=== PATIENT | male | born 1970 | race Caucasian/White ===

== ENCOUNTER 2020-01-31 08:31 | Emergency (ER) | payer BC, SELFPAY ==
[2020-01-31] VITALS (36 sets, daily range): BP systolic 141–197; BP diastolic 86–116; PULSE 50–77; RESP 12–26; TEMP 36.4–36.6; O2SAT 98–100
--- NOTE | 2020-01-31 08:30 | RT.EKG_ITS ---
APPROVED REPORT Exam: Resting ECG Patient Location: E HR:66 bpm ECG Measurements Heart Rate 66 AXIS TX 178 P 6 QRSd 80 QRS 19 QT 402 T 2 QTc 420 Conclusion Sinus rhythm...normal P axis, V-rate 60- 99 Q lead III nondiagnostic
--- NOTE | 2020-01-31 08:36 | W.ED.GENAD ---
Discharge Plan Disposition Patient Disposition: HOME Condition: Stable Discharge Details Chief Complaint: Chest Pain Clinical Impression: Dizziness, Chest pain Primary Care Provider: Unknown,Unknown ED Provider: Radha Salter Home Meds and New Rx's Prescriptions: Continued lisinopril 30 mg Tablet 30 mg PO DAILY RF: 0 Discharge Instructions Instructions: Chest Pain (ED), Dizziness (ED) Additional Instructions: Imaging is reassuring today of your head. I would recommend outpatient stress testing of your heart. I have made an appointment with your primary care with your primary care at 10:45 Monday morning. If you develop fever/chills, recurrent lightheadedness/dizziness, chest pain, shortness of breath or other new/worsening symptoms I would like you to follow-up urgently once again Discharge Data Discharge Date/Time-TO BE ENTERED AT DEPARTURE: 01/31/20 15:09 Medical Decision Making <BRIDGETT Huynh - Last Filed: 02/01/20 06:54> Patient is a pleasant 49-year-old male who reported no past medical history, presenting today with chief complaint of left-sided chest/shoulder pain, dizziness and generalized weakness. States that yesterday he was having this left-sided chest/shoulder pain. He attributed this to raking for extended period of time Monday. He has been using topical options for his CP/shoulder pain. Patient works delivering products via truck. States his day started at 1 AM. It was at 3 AM, while driving, he began having lightheadedness. He endorses both feeling of the room spinning as well as lightheadedness. States that he was listing to the right with the room spinning to the left. States that when this first began he was having headache which is since resolved. His chest pain is also since resolved. He is feeling generally weak. Has not had a change in his speech, strength. States that he did sleep for a brief period of time did not note any improvement in the symptoms. He is never had symptoms like this historically. No recent travel. No fevers or chills. He denies any neck pain. Also noted rash to left side of his chest approximately 1 week ago which she described as a burning rash. States that this has been improved. On exam, patient appears uncomfortable, he is closing his eyes and holding very still. Neuro exam is intact. Normal cardiac and respiratory exam. Differential at this time is quite broad. I did consider ACS as the etiology of his lightheadedness, dizziness chest pain. However, this did not always seem to be correlated. Since the patient has a multitude of various complaints that have been in different stages of time. Internally, this could be associated with PE, vertigo, posterior stroke versus other. EKG was reviewed by Dr. Burden. He advises no acute ischemic pathology noted. Patient is in normal sinus rhythm with a rate of 66. Labs reviewed, no acute abnormality noted. Troponin is less than 0.05. No electrolyte abnormalities. D-dimer is less than 500. CBC within normal limits. Contacted by radiologist, no acute abnormality noted on head CT, no acute bleed or ischemic process. Patient reports feeling much improved. He continues to have a normal neurologic exam. However, he does report that he continues to be fatigued. He does not have any chest pain at this point. I am concerned with the event that he had this morning that he should be admitted for continued cardiac monitoring as well as MRI of his head. Spoke with hospitalist regarding admission for vertigo, KEENAN, JULIUS. She evaluated the patient, is concernned for labyrinthitis. She advised consultation with PT. she would like physical therapy consult as well as brain MRI prior to admission. PT evaluated the patient and was unable to elicit evidence of vertigo, patient did well with all testing. Repeat troponin and ECG without abnormality. MRI reviewed by radiologist. He advised microvascular change in white matter but that this is typical and appropriate for age. No acute process noted. Spoke again with hospitalist. At this time, as the patient now has 2- troponins, MRI without acute abnormality, she feels that discharge is most appropriate option for this patient. She reports that she did speak with the patient regarding admission and he had preferred discharge. She also adds the patient's history that he had had some congestion and right ear discomfort. While there is no evidence to suggest otitis media, she is primarily concerned for labyrinthitis leading to vertigo which is currently resolved. She does however, recommend outpatient stress testing. Hospitalist feels that the patient's left-sided shoulder/chest pain associated with recurrent musculoskeletal discomfort. Is reported to have had old injury that flares in the left shoulder. Discussed these concerns with the patient. We discussed inpatient versus outpatient admission. Patient continues to be completely asymptomatic. He does seem like a very reliable gentleman. He was advised not to drive at this time. Encourage water intake. Offered strict return precautions. I will reach out to patient's primary care to arrange for prompt follow-up. Patient would like to have stress testing at outside facility which she will discuss further with his primary care. Spoke with patients primary care office, [facility], was able to make appointment with PCP for Monday at 10:45. Patient's came to pick him up. All his questions and concerns were addressed and he is in agreement this plan. <Wayne Burden MD - Last Filed: 02/01/20 08:37> 9:10 -- Patient seen, examined, and discussed with BRIDGETT Salter. Screening ECG was reviewed and interpreted by me: Please see report, Q waves noted lead III, subtle less than [address] elevation in lead V4 and V5, artifact V6. Will repeat ECG. Patient has no recurrent chest pain but has had recent discomfort in his left chest and left shoulder that he attributes to raking. Patient notes that a few days ago he had a floater in his left eye that lasted about an hour. This is atypical and is never had similar before. Episode was painless. This morning he was driving his truck and developed some dizziness and felt like he was falling to the right. This occurred around 4 AM and lasted for some time. He had associated severe nausea with the episode. No headache. Notes symptoms resolved 1 to 2 hours ago. He notes he also had some left chest discomfort that lasted from approximately 7:53 AM. He continues to note some left posterior neck left occipital head discomfort. Consider ACS. Will check troponin. Concern for potential CVA posterior circulation. Will obtain CT CTA of the head and neck. Patient examined and is hypertensive. He took his antihypertensive last night as prescribed. Patient is saturating well in no respiratory distress. Heart sounds normal. Neurologically intact. -- I agree with treatment plan as discussed/documented by BRIDGETT Salter. Initial plan for admission. Patient evaluated by hospitalist for admission and deemed stable for discharge. BRIDGETT Salter did contact PCP to arrrange timely outpatient follow-up and patient was encouraged to return to the ED for any worsening or new concerning symptoms. HPI <BRIDGETT Huynh - Last Filed: 02/01/20 06:54> General Mode of arrival: ambulatory. Date/Time Provider Initiated Documentation: 01/31/20 08:36. Limitations to Documentation: no limitations. Information obtained by: patient and RN notes reviewed. History of Present Illness 49 year old M presents to the emergency department with the chief complaint of dizziness, left shoulder/upper chest pain, described as moderate, with intensity rated at 1 (patient denies any pain at this time). Quality is described as aching, and is localized to the chest. Patient extremity (left shoulder). Patient started experiencing this day(s) (1) and it has been constant. No relieving factors improve symptom(s), No exacerbating factors reported . Patient notes no other symptoms.. Patient did receive the following treatments prior to arrival, none Related Data Home Medications Medication Instructions Recorded Confirmed lisinopril 30 mg PO DAILY 01/31/20 01/31/20 Allergies Allergy/AdvReac Type Severity Reaction Status Date / Time acetaminophen [From Percocet] AdvReac Intermediate Other (See Unverified 01/31/20 08:48 Comment) oxycodone [From Percocet] AdvReac Intermediate Other (See Unverified 01/31/20 08:48 Comment) Review of Systems <BRIDGETT Huynh - Last Filed: 02/01/20 06:54> Constitutional Constitutional: Reports as per HPI, Denies chills, Reports fatigue, Denies fever(s), Reports headache(s), Denies lethargy, Denies poor appetite and Denies weakness Eyes Eyes: Denies change in vision ENT Ears, Nose, Mouth, and Throat: Reports vertigo, Reports dizziness, Reports headache(s) and Reports disequilibrium Cardiovascular Cardiovascular: Reports as per HPI, Reports chest pain, Reports chest pain at rest, Denies syncope, Denies edema, Denies leg edema, Denies lightheadedness, Reports radiating jaw, neck or arm pain (Right shoulder), Denies palpitations, Denies dyspnea and Denies dyspnea on exertion Respiratory Respiratory: Reports as per HPI, Denies chest congestion, Denies cough, Denies pain on inspiration, Denies pain with cough, Denies dyspnea, Denies dyspnea on exertion and Denies wheezing Gastrointestinal Gastrointestinal: Reports as per HPI, Denies abdominal pain, Denies diarrhea, Reports nausea and Denies vomiting Genitourinary Genitourinary: Denies system reviewed and no additional complaints, except as documented (denies change in urinary habits) Musculoskeletal Musculoskeletal: Reports as per HPI and Denies back pain Integumentary/Breasts Skin/Breast: Reports as per HPI and Denies rash Neurologic Neurologic: Reports as per HPI, Reports abnormal movements (Reports that he was listing to the right), Denies confusion, Reports vertigo, Reports dizziness, Denies syncope, Reports headache(s), Denies localized weakness, Denies radicular pain, Denies sensory deficit, Denies paresthesias, Reports disequilibrium and Denies weakness Psychiatric Psychiatric: Denies confusion Endocrine Endocrine: Reports fatigue and Denies palpitations Allergic/Immunologic Allergic/Immunologic: Denies wheezing PFSH <BRIDGETT Huynh - Last Filed: 02/01/20 06:54> Medical History Hypertension (Chronic) Nephrolithiasis (Chronic) Surgical History H/O arthroscopy of left knee (Acute) H/O cystoscopy (Acute) with ureteral stent; not removed H/O decompression of ulnar nerve (Acute) H/O lithotripsy (Acute) Family History (Updated 01/31/20 @ 15:19 by Rsoy Hunt MD) Maternal Grandmother Heart disease [place] in her 60s Stroke Paternal Grandmother Stroke Paternal Aunt Diabetes Mother Hypertension Cancer breast cancer Father Hypertension Sister Hypertension Cancer lymphoma Social History Smoking/Tobacco Use Status: Former Tobacco Use Alcohol Intake: current Alcohol Intake frequency: a few times a week Drug use: Never Substance use type: does not use Do you feel safe at home: Yes Do you feel safe in your relationship?: Yes Exam <BRIDGETT Huynh - Last Filed: 02/01/20 06:54> Const General: cooperative, comfortable, no acute distress, well developed and ill appearing acutely Nutritional Appearance: well nourished and overweight Orientation: alert, awake and oriented x3 HENMT Head: normal to inspection Ears: hearing grossly normal bilaterally Mouth: moist mucous membranes Chest Chest: normal inspection of the chest, normal palpation of entire chest wall and no crepitus Resp Effort & Inspection: normal respiratory effort, able to speak in complete sentences and no respiratory distress Auscultation: clear to auscultation bilaterally, no rales, no rhonchi and no wheezes Cardio Rate: regular rate Rhythm: regular rhythm Heart Sounds: S1 normal and S2 normal GI Inspection: normal to inspection, no edema and non-distended Palpation: soft, no hepatosplenomegaly, not firm, no guarding, not rigid and nontender Auscultation: normal bowel sounds Back/Spine/Pelvis Back: no CVA tenderness Thoracic/Lumbar Spine: thoracic and lumbar spine normal to inspection Skin General skin exam: no rashes or lesions noted Trauma: no lacerations or abrasions Neuro General: patient alert, patient awake and patient oriented x3 Cognition: normal cognition Speech: speech normal Gait: normal gait Motor: muscle tone normal throughout, strength 5/5 throughout, no pronator drift, no movement abnormalities noted and no fasciculations Sensory Exam: no sensory deficits noted DTR's: Rt Biceps: 2+, Lt Biceps: 2+, Rt Brachioradialis: 2+, Lt Brachioradialis: 2+, Rt Patellar: 2+ and Lt Patellar: 2+ Plantar Reflexes: Equivocal: bilateral Coordination: [id number] test normal, [id number] test normal, Romberg test normal, tandem gait normal and Does not sway with eyes open Pupils: Normal pupillary reactivity/response: bilateral Extrem General: normal to inspection, capillary refill normal, no pedal edema, no calf tenderness and normal gait Psych Appearance: grossly normal and well kempt Mental Status: mental status grossly normal Speech and Movement: speech and movement normal
--- NOTE | 2020-01-31 08:45 | RT.EKG_ITS ---
APPROVED REPORT Exam: Resting ECG Patient Location: E HR:65 bpm ECG Measurements Heart Rate 65 AXIS FL 200 P 16 QRSd 82 QRS 19 QT 403 T 7 QTc 420 Conclusion Sinus rhythm...normal P axis, V-rate 60- 99 Qlead III <1mm STelev V4-6
[2020-01-31] MEDS: Aspirin 81 MG CHEW 324 MG CH (08:53)
[2020-01-31 08:54] LABS: Abs Immature Grans 0.02 10^3/uL (0.0-0.06); Absolute Basophil Count 0.02 10^3/uL (0.0-0.2); Absolute Eosinophil Count 0.02 10^3/uL (0.0-0.7); Absolute Lymphocyte Count 1.21 10^3/uL (1.2-3.4); Absolute Monocyte Count 0.32 10^3/uL (0.1-0.8); Absolute Neutrophil Count 6.26 10^3/uL (1.2-6.7); Basophils % 0.3; Eosinophils % 0.3; HCT 46.8 % (40.0-50.0); HGB 16.2 g/dL (13.5-17.5); Immature Grans % 0.3; Lymphocytes % 15.4; MCH 30.9 pg (27.0-33.0); MCHC 34.6 % (32.0-36.0); MCV 89.3 fL (80-95); MPV 9.7 fL (8.0-11.0); Monocytes % 4.1; Neutrophils % 79.6; Nucleated RBC 0 %; Platelet Count 259 10^3/uL (130-400); RBC 5.24 10^6/uL (4.36-5.78); RDW 11.9 % (11.8-14.1); RDW-SD 38.5 fL; WBC 7.85 10^3/uL (4.4-10.8)
--- NOTE | 2020-01-31 09:01 | DI.CT_ITS ---
EXAM: CT BRAIN NECK CTA CLINICAL HISTORY: left posterior full. TECHNIQUE: Imaging Protocol: Axial CT angiography was performed with multi-slice acquisition and mu lti-planar and/or 3D reconstructions. CONTRAST MATERIAL: Intravenous: Omnipaque 350 Contrast volume:structured data in ml COMPARISON: CR XR CHEST 2V PA LATERAL from 01/31/2020 FINDINGS: CT angiography of the cervical cranial region was performed according to the usual protocol. Noncontrast CT obtained initially is within normal limits. There is a right-sided aortic arch. The origins of the major branches of the thoracic aorta appear n ormal. Visualized pulmonary arterial circulation is unremarkable. No mediastinal mass or adenopathy . Lung apices are clear. There is no evidence of a cervical mass or adenopathy. The tracheal laryngeal structures appear intac t. The common, internal, and external carotid arteries are within normal limits in the cervical region w ith no evidence of aneurysm, stenosis, or dissection. The vertebral arteries are unremarkable in appearance in the cervical region with no evidence of aneu rysm, stenosis, or dissection. Intracranial portions of the internal carotid arteries appear normal with no evidence of aneurysm, st enosis, or dissection. Intracranial vertebral arteries and basilar artery appear normal with no evidence of aneurysm, stenos is or dissection. No aneurysm identified in the region of the [id number]. The anterior, middle, and posterior cer ebral arteries and major branches appear intact with no evidence of aneurysm, stenosis, or dissection . No enhancing brain lesion identified. IMPRESSION: Negative CT angiography of the cervical cranial region. Incidental right-sided aortic arch. RADIATION DOSE DELIVERED: 1,372.86mGy.cmTotal DLP 1,372.86mGy.cm Total DLP DATA REPOSITORY: All CT scans at this facility are submitted to the National Radiology Data Registry (NRDR) Dose Index Registry (DIR) with the [employer] (ACR). RADIATION OPTIMIZATION: All CT scans at this facility use at least one of these dose optimization te chniques: automated exposure control; mA and/or kV adjustment per patient size (includes targeted exa ms where dose is matched to clinical indication); or iterative reconstruction.
[2020-01-31 09:22] LABS: ALT 53 U/L (16-63); AST 27 U/L (15-37); Albumin 4.6 g/dL (3.4-5.0); Alkaline Phosphatase 83 U/L (46-116); Anion Gap 9.9 mmol/L (3-11); BUN 16 mg/dL (7-18); Bilirubin, Total 0.7 mg/dL (0.2-1.0); CO2 26.1 mmol/L (21.0-32.0); CREATININE 1.13 mg/dL (0.70-1.30); Calcium 9.4 mg/dL (8.5-10.1); Chloride 102 mmol/L (98-107); Glucose 130 mg/dL (74-106); Magnesium 2.1 mg/dL (1.8-2.4); Potassium 4.2 mmol/L (3.5-5.1); Sodium 138 mmol/L (136-145)
[2020-01-31 09:23] LABS: Troponin I < 0.05 ng/mL (<0.06)
[2020-01-31 09:30] LABS: D-Dimer 199 ng/mlFEU (<500)
--- NOTE | 2020-01-31 10:06 | DI.RAD_ITS ---
EXAM: XR CHEST 2V PA LATERAL CLINICAL HISTORY: CP, dizzy TECHNIQUE: COMPARISON: No exams were available for comparison FINDINGS: The heart is not enlarged. Note is made of a right-sided aortic arch as seen on today's CT angiogram . The lungs are clear. No pleural effusion seen. IMPRESSION: No evidence of acute process. RADIATION DOSE DELIVERED: Total DLP
[2020-01-31] MEDS: Omnipaque 350 MG/ML 100 ML BTL IJ (10:12)
[2020-01-31] MEDS: Normal Saline - Diluent 50 ML VIAL IV (10:13)
--- NOTE | 2020-01-31 11:45 | RT.EKG_ITS ---
APPROVED REPORT Exam: Resting ECG Patient Location: E HR:58 bpm ECG Measurements Heart Rate [address] 207 P 41 QRSd 83 QRS 31 QT 416 T 15 QTc 408 Conclusion Sinus bradycardia...rate< [address]...CT >202, V-rate 50- 90
[2020-01-31 12:12] LABS: Troponin I < 0.05 ng/mL (<0.06)
--- NOTE | 2020-01-31 13:20 | DI.MRI_ITS ---
EXAM: MR BRAIN WO CLINICAL HISTORY: concern for posterior infarct,DIZZINESS, WEAKNESS TECHNIQUE: Multiplanar multisequence MRI of the brain was performed. COMPARISON: No exams were available for comparison FINDINGS: The ventricular system is normal in appearances. There are a few focal areas of abnormal signal in periventricular white matter consistent with mild m icrovascular ischemic changes not unusual in this age group. No other significant signal abnormality identified in the brain.. The orbital and temporal bone structures appear intact as does the pituitary. Diffusion weighted imaging shows No evidence of infarction. Susceptibility weighted imaging shows no evidence of intracranial hemorrhage. There is normal flow void in the [place] vasculature. IMPRESSION: Question minimal microvascular ischemic changes. Otherwise unremarkable examination. DATA REPOSITORY:
--- NOTE | 2020-01-31 14:01 | PT.INIE ---
Date of service: 01/31/20 Time of Service: 13:20 PT Notes Inpatient Physical Therapy Evaluation Date: 01/30/29 Referring Doctor: Rosy Hunt MD PT Orders: PT CONSULT: Safety consult Precautions: Standard Patient Profile/Admitting Diagnosis: Patient is a non Covid PUI who has been admitted to the ED with symptoms of dizziness and chest pain. He states that he began feeling ill early this morning. There were episodes in which he felt like the room was spinning, particularly when closing his eyes and he felt like he was leaning to the right. There were times that he felt like he was getting light headed. He states the he was having some difficulty with driving. He decided to come to the emergency room. He can not recall any trauma recently, no recent illness, and does not believe that he ate any questionable or food. PMHX: HTN Social History/Home Situation: Lives in [place], is a trunk driver/sales workers for [employer] Owned/DME: nothing Subjective: Feeling better then I did this morning Objective: Patient lying supine in bed with HOB to about 30 degrees Mental Status: Well oriented and alert to person, place, and time Headache currently: mild Nausea: mild to moderate Fogginess: none ROM: Right Upper Extremity: WNL Left Upper Extremity: WNL Right Lower Extremity: WNL Left Lower Extremity: WNL Strength: Right Upper Extremity: Globally 5/5 Left Upper Extremity: Globally 5/5 Right Lower Extremity: Globally 5/5 Left Lower Extremity: Globally 5/5 Bed Mobility/Transfers: Independent Supine-sit: Independent Sit-stand: Independent Stand-sit: Independent Gait: No evidence of severe antalgia or ataxia Balance: Static Sitting: Normal Dynamic Sitting: Normal Static Standing: Normal Dynamic Standing: Good Special Tests: Negative Romberg Negative Supine roll test Negative jennifer cohen pike test Smooth pursuits and saccades are WNL Negative dysmetria upon upper extremity coordination Informed Consent/Education: Patient instructed in purpose of PT consult and plan of care. ASSESSMENT: Patient is a 49 year old male with a history of fair physical health Admitted with Dizziness, cheset pain Patient presents with the following impairment level findings: Negative jennifer cohen pike, negative supine roll test, negative Romberg, mild symptoms with repetitive end range movement of the cervical spine, particular sagittal plane Pt will benefit from skilled therapy intervention in order to remedy their functional limitations and restore patient to a more appropriate and stable functional level. Impairments are contributing to the following functional limitations: Difficulty walking Patient is assessed as a Low complexity Initial evaluation based on the following: History: see above Examination: see above Presentation: stable Decision Making:Low based on the absence of any significant clinical physical finding upon this evaluation Goals: NO goals as this was a one time consult for safety Plan of Care/Treatment Plan: Patient will continue to monitor his symptoms. He should seek further medical assistance if there is a return, and follow up with his PCP concerning this ED visit. DISCHARGE RECOMMENDATIONS: Can safely return to home once his medical status has been reviewed. TREATMENT CODE/TIME: 70687 Low complexity Initial evaluation [facility]
--- NOTE | 2020-01-31 14:08 | NUR.NOTE ---
Nursing Note: PT sitting upright eating a sandwich and drinking zuleyka osiel. Vitals stable, PT currently pain free.
--- NOTE | 2020-01-31 14:39 | W.MEDCONSULT ---
Date of service: 01/31/20 Time of Service: 12:15 Assessment and Plan Assessment and plan (1) Vertigo: Status: Resolved Assessment and plan: Given the sinus symptoms, I think labirintitis is a possibility. MRI is negative. Recommend OTC antihistamines for sinus issues and, if vertigo recurs, trial of meclizine. I do not think that the patient warrants further inpatient workup/observation at this time and can be discharged home today. (2) Chest pain: Status: Resolved Assessment and plan: Likely musculoskeletal. However, do recommend outpatient stress test within the next 2 weeks. The patient has ruled out for ACS as this time. (3) Allergic rhinitis: Status: Acute Assessment and plan: Recommend OTC remedies, such as cetirizine or loratadine. 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 He described dizziness as the room spinning around him, his eyes not being able to focus. Concurrently he felt nauseated. When he got out of the truck, he was leaning to the right and felt his balance was off. He also reported feeling anxious and jittery. While he endorses having L shoulder and upper L-sided chest pain, he states that the shoulder pain is not new, that it started days ago after raking and that putting icy hot on it has helped. The anterior chest wall pain to him felt like a tightened muscle (in conversation with me, he clearly stated he connected it to the shoulder pain due to prior shoulder injury 2 years ago). The symptoms lasted for 4 hours and have resolved. For the past several days, he has had right ear pain and nasal congestion. He has been wearing a mask and initially thought that the ear hurt because of the ear loop irritation from the mask. He states he has been sneezing. He denies fevers, cough, shortness of breath, changes in taste/smell, shortness of breath, traveling outside [place], or being in contact with anyone positive for COVID-19. He had a negative workup in the ED including 2 sets of troponins, a negative MRI. He was evaluated by PT who was not able to illicit vertiginous symptoms during their evaluation. Internal medicine was consulted to help figure out further course of treatment for the patient, who by the time of evaluation was already doing much better. Review of Systems All systems reviewed & are unremarkable except as noted in HPI and below PFSH Medical History (Updated 01/31/20 @ 15:29 by Rosy Hunt MD) Hypertension (Chronic) Nephrolithiasis (Chronic) Surgical History (Updated 01/31/20 @ 15:16 by Rosy Hunt MD) H/O arthroscopy of left knee (Acute) H/O cystoscopy (Acute) with ureteral stent; not removed H/O decompression of ulnar nerve (Acute) H/O lithotripsy (Acute) Family History (Updated 01/31/20 @ 15:19 by Rosy Hunt MD) Maternal Grandmother Heart disease [place] in her 60s Stroke Paternal Grandmother Stroke Paternal Aunt Diabetes Mother Hypertension Cancer breast cancer Father Hypertension Sister Hypertension Cancer lymphoma Social History Smoking/Tobacco Use Status: Former Tobacco Use Alcohol Intake: current Alcohol Intake frequency: a few times a week Drug use: Never Substance use type: does not use Do you feel safe at home: Yes Do you feel safe in your relationship?: Yes Exam Narrative Exam Narrative: General: pleasant, mildly anxious obese male, does not look toxic, A&Ox3, appears comfortable Neurological: A&Ox3, no focal deficits, EOMI without nystagmus Psychiatric: Mildly anxious Skin: Several small mildly erythematous lesions on the Left anterior thorax, c/w healing shingles, no crusted/frankly vesicular lesions seen HEENT: Atraumatic, normocephalic, EOMI, dry MM, clear oropharynx, no submandibular or cervical lymphadenopathy, no goiter or JVD. Bilateral ear canals with small amount of cerumen; tympanic membranes not erythematous, not bulging Cardiovascular: RRR, no m/r/g Lungs: CTAB Gastrointestinal: soft, nontender, nondistended Genitourinary: deferred Extremities: no edema BLEs Results Last Vital Signs Temp 36.4 C L 01/31/20 12:28 Pulse 59 L 01/31/20 14:01 Resp 17 01/31/20 14:01 BP 161/106 H 01/31/20 14:01 Pulse Ox 99 01/31/20 12:31 Labs Result diagrams: 01/31/20 08:46 01/31/20 08:46 Labs: Laboratory Results - last 24 hr 01/31/20 01/31/20 01/31/20 08:46 08:46 08:46 WBC 7.85 RBC 5.24 Hgb 16.2 Hct 46.8 MCV 89.3 MCH 30.9 MCHC 34.6 RDW 11.9 Plt Count 259 MPV 9.7 Immature Gran % 0.3 Neutrophils % 79.6 Lymphocytes % 15.4 Monocytes % 4.1 Eosinophils % 0.3 Basophils % 0.3 Nucleated RBC % 0 Absolute Neutrophils 6.26 Absolute Lymphocytes 1.21 Absolute Monocytes 0.32 Absolute Eosinophils 0.02 Absolute Basophils 0.02 D-Dimer 199 Sodium 138 Potassium 4.2 Chloride 102 Carbon Dioxide 26.1 Anion Gap 9.9 BUN 16 Creatinine 1.13 Estimated GFR/1.73 m2 >= 60.00 Glucose 130 H Calcium 9.4 Magnesium 2.1 Total Bilirubin 0.7 AST 27 ALT 53 Alkaline Phosphatase 83 Troponin I < 0.05 Total Protein 8.0 Albumin 4.6 01/31/20 11:41 WBC RBC Hgb Hct MCV MCH MCHC RDW Plt Count MPV Immature Gran % Neutrophils % Lymphocytes % Monocytes % Eosinophils % Basophils % Nucleated RBC % Absolute Neutrophils Absolute Lymphocytes Absolute Monocytes Absolute Eosinophils Absolute Basophils D-Dimer Sodium Potassium Chloride Carbon Dioxide Anion Gap BUN Creatinine Estimated GFR/1.73 m2 Glucose Calcium Magnesium Total Bilirubin AST ALT Alkaline Phosphatase Troponin I < 0.05 Total Protein Albumin Imaging Additional studies: CTA chest: Negative CT angiography of the cervical cranial region. Incidental right-sided aortic arch. CXR: No evidence of acute process. Brain MRI: Question minimal microvascular ischemic changes. Otherwise unremarkable examination. EKG #1: NSR, HR 66, slight lateral ST elevations (less than 1 mm) leads V4-V6 EKG #2: NSR, HR 65, unchanged lateral <[address] elevations in V4-V6 EKG #3: unchanged, HR 58.
== END 2020-01-31 15:09 | disposition home or self-care (01) ==
PROVIDERS: Emergency Provider Physician Assistant
DX: R42 Dizziness and giddiness (principal); R07.9 Chest pain, unspecified; J30.9 Allergic rhinitis, unspecified; M25.512 Pain in left shoulder; I10 Essential (primary) hypertension
CPT/HCPCS: 36415; 70496; 70498; 80053; 93005; 99253; 99283; 99285; 70551; 71046; 83735; 84484; 85025; 85379; 93010; J3490

== ENCOUNTER 2020-02-11 00:52 | Outpatient (CLI) | payer BC, SELFPAY ==
--- NOTE | 2020-02-11 08:45 | DI.NM_ITS ---
APPROVED REPORT Exam: Exercise Treadmill Patient Location: Out-Patient Room/Bed: Stress Nurse: Manisha Carlos RN BMI: 35.14 Baseline Rhythm: Sinus Rhythm Comment: Early R wave progression Indications: Chest pain at rest. Medical History Medical History: Obesity, Former smoker, HTN Cardiac Medications: Lisinopril. Allergies: Acetaminophen. Oxycodone. Cardiac Risk Factors: HTN, obesity, former smoker. Exercise History: Physically active Lung Sounds: Clear to auscultation Heart Sounds: Regular Stress Test Details Test: Exercise stress testing was performed using a Bhavik protocol. Nuclear Acquisition: Rest Tc-99m/Stress Tc-99m 1 day Rest Isotope: Tc-99m Sestamibi. Dose: 14.0 Date: 02/11/2020 Injection Time: 0945 Stress Isotope: Tc-99m Sestamibi. Dose: 45.2 Date: 02/11/2020 Injection Time: 1120 HR Resting HR Supine: 60 bpm Max Heart Rate (APMHR): 170 bpm Resting HR Standin bpm Target HR (85% APMHR): 144 bpm Max HR Achieved: 152 bpm % of APMHR: 89 Recovery HR: 84 bpm HR response to stress: Accelerated HR response to stress BP Resting BP Supine: 132/84 mmHg Resting BP Standin/88 mmHg Max BP: 182/64 mmHg Recovery BP: 142/76 mmHg BP response to stress: Normal blood pressure response to stress. ECG Resting ECG: Sinus Rhythm Stress ECG: Sinus Tachycardia ST Change: No significant ST segment changes Recovery ECG: Sinus Rhythm Recovery ST Change: No significant ST segment changes Recovery Arrhythmia: None Clinical Reason for Termination: Fatigue Stress Symptoms: Leg Fatigue Exercise duration: 12 min00 sec Highest Stage Reached: Stage 4: 4.2 mph at 16% grade. Exercise capacity: 13.48 METs Functional Capacity: Above average capacity Stress ECG Conclusion 1. The patient exercised for 12 minutes (13 METS). Exercise was stopped due to fatigue. 2. Patient no symptoms suggestive of ischemia. 3. There is no evidence of ischemia on EKG portion exam. Stress Test Summary STAGE Time (mins) Speed (mph) Grade (%) HR BP SYMPTOMS METS Supine 60 132/84 Standing 67 128/88 1 3 1.7 10 86 136/80 4.6 2 6 2.5 12 99 144/72 7 3 9 3.4 14 117 156/72 10.2 1 min recovery 130 182/64 3 min recovery 92 170/66 6 min recovery 84 142/76 MPI Conclusion The ejection fraction was 63% with stress. There were no wall motion abnormalities. There are 2 small nonreversible perfusion defects at the apex and the basal lateral wall and could re present artifact. There is no evidence of jayne-infarct ischemia. Radiologist Interpretation Radiologist agrees with Framing Consultant's Interpretation. Radiologist Interpretation by: Bella Lai MD Interpretation Date/Time: 02/12/2020 10:22:25
== END 2020-02-11 01:12 ==
PROVIDERS: PCP Family Medicine; Visit Provider Family Medicine
DX: R07.9 Chest pain, unspecified (principal); I10 Essential (primary) hypertension; E66.9 Obesity, unspecified; Z87.891 Personal history of nicotine dependence
CPT/HCPCS: 78452; 93017